=== PATIENT | male | born 1965 | race Caucasian/White ===

== ENCOUNTER 2022-04-03 12:54 | Inpatient (IN) ==
[2022-04-03 13:11] LABS: Basophils # 0.2 10*3/uL (0.0-0.2); Basophils % 0.5 % (0.0-0.8); Eosinophils # 0.1 10*3/uL (0.0-0.87); Eosinophils % 0.3 % (0.00-10.9); Hematocrit 32.4 VOL% (42.0-52.0); Immature Granulocytes % 9.5 %; Immature Granulocytes Absolute 3.31 #; Lymphocytes # 2.9 10*3/uL (1.4-4.0); Lymphocytes % 8.4 % (21.2-54.2); Mean Corpuscular HGB Conc 28.7 GM/DL (32-36); Mean Corpuscular Volume 100.6 FL (87-102); Mean Platelet Volume 10.7 FL (9.6-12.0); Monocytes # 3.3 10*3/uL (0.11-0.8); Monocytes % 9.4 % (1.7-12.7); NRBC # 0.25 10*3/uL; Neutrophils % 71.9 % (38.7-73.9); Platelet Count 204 T/CUMM (130-400); Red Blood Count 3.22 MC/CUMM (3.8-5.5); Red Cell Distribution Width 14.7 % (9.3-17.3); White Blood Count 34.8 T/CUMM (4-12)
[2022-04-03 13:20] LABS: Hemoglobin 9.3 GM/DL (14.0-18.0)
[2022-04-03 13:25] LABS: Albumin 1.4 G/DL (3.4-5.0); Calcium 9.4 MG/DL (8.5-10.1); Osmolality,Calculated 284.4 MOS/KG (273-304); Total Protein 4.5 G/DL (6.4-8.2)
[2022-04-03 13:28] LABS: Potassium 6.6 MMOL/L (3.5-5.1)
[2022-04-03] MEDS ORDERED: DEXTROSE 50% 25 GM/50 ML SYRINGE IV ONE ×2 (13:29→21:17)
[2022-04-03] MEDS ORDERED: DEXTROSE 50% 25 GM/50 ML VIAL IV STA (13:33)
[2022-04-03] MEDS ORDERED: DEXTROSE 50% 25 GM/50 ML SYRINGE IV STA (13:36)
[2022-04-03] MEDS ORDERED: SODIUM CHLORIDE 0.9% 1,000 ML IV STA ×3 (13:38→16:46)
[2022-04-03] MEDS ORDERED: VANCOMYCIN INJ 1,000 MG in SODIUM CHLORIDE 0.9% 250 ML IV STA (13:50)
[2022-04-03] MEDS ORDERED: PIPERACILLIN/TAZOBACTAM 3,375 MG in SODIUM CHLORIDE 0.9% 100 ML IV STA (13:51)
[2022-04-03] MEDS ORDERED: SODIUM BICARBONATE 50 MEQ/50 ML VIAL IV STA ×3 (13:51→18:07)
[2022-04-03] MEDS ORDERED: SODIUM ZIRCONIUM CYCLOSILICATE 10 GM PACK PO ONE (13:57)
[2022-04-03 14:40] LABS: Arterial Base Excess iSTAT -22 MMOL/L (-2.5-2.5); Arterial Bicarbonate iSTAT 6.3 MMOL/L (20-26); Arterial O2 Saturation iSTAT 98 % (95-100); Arterial PCO2 iSTAT 22 MM HG (35-48); Arterial PO2 iSTAT 134 MM HG (80-95); Arterial Total CO2 iSTAT 7 MMO/L (23-27)
[2022-04-03] MEDS ORDERED: SODIUM BICARBONATE 50 MEQ/50 ML VIAL IV ONE ×3 (15:11→21:52)
[2022-04-03] MEDS ORDERED: HYDROCORTISONE 100 MG VIAL IV STA (15:12)
[2022-04-03] MEDS: NOREPINEPHRINE 8 MG in SODIUM CHLORIDE 0.9% 242 ML IV PRN (15:40)
[2022-04-03] MEDS ORDERED: NOREPINEPHRINE 4 MG/4 ML VIAL IV ONE (15:44)
[2022-04-03] MEDS ORDERED: CALCIUM GLUCONATE RIDER 1,000 MG/50 ML PREMIX IV ONE ×3 (16:11→21:45)
[2022-04-03] MEDS ORDERED: SODIUM POLYSTYRENE SULFATE 15 GM/60 ML BOTTLE PO STA (16:11)
[2022-04-03 16:32] LABS: Band Neutrophils 6 % (0-10); Lymphocytes 6 % (20-55); Total Cells Counted 100
[2022-04-03 16:33] LABS: Platelet Estimate Normal
[2022-04-03] MEDS: SODIUM BICARB INJ 150 MEQ in DEXTROSE 5% 1,000 ML IV SCH (16:43)
[2022-04-03 17:18] LABS: ABG Base Excess -20.7 MMOL/L (-2.5-2.5); ABG HCO3 9.2 MMOL/L (20-26); ABG Oxygen Saturation 97.9 % (95-100); ABG PCO2 23.4 MM HG (35-48); ABG TCO2 7.3 MMOL/L (23-27)
[2022-04-03 17:25] LABS: ABG PH 7.116 (7.35-7.45)
[2022-04-03 18:05] LABS: Phosphorous 9.5 MG/DL (2.5-4.9); Uric Acid 4.7 MG/DL (3.5-7.2)
[2022-04-03] MEDS ORDERED: ALBUTEROL 2.5 MG/3 ML NEB RESP TX PRN (18:08)
[2022-04-03] MEDS ORDERED: ACETAMINOPHEN 325 MG TABLET PO PRN (18:09)
[2022-04-03] MEDS ORDERED: MORPHINE 2 MG/1 ML SYRINGE IV PRN (18:09)
[2022-04-03] MEDS ORDERED: ONDANSETRON 4 MG/2 ML VIAL IV PRN (18:09)
[2022-04-03] MEDS ORDERED: PANTOPRAZOLE 40 MG VIAL IV SCH (18:30)
[2022-04-03] MEDS ORDERED: SODIUM CHLORIDE 0.9% IV ONE (18:30)
[2022-04-03] MEDS ORDERED: TOCILIZUMAB IV ONE (18:30)
[2022-04-03 18:40] LABS: Calcium 8.8 MG/DL (8.5-10.1); Osmolality,Calculated 292.7 MOS/KG (273-304)
[2022-04-03] MEDS: CEFEPIME 1,000 MG in SODIUM CHLORIDE 0.9% 100 ML IV SCH (18:42)
[2022-04-03] MEDS ORDERED: DEXAMETHASONE 10 MG/1 ML VIAL IV ONE (18:47)
[2022-04-03 18:58] LABS: INR 2.1; PT Patient Result 22.1 SECS (10.1-12.1)
[2022-04-03] MEDS ORDERED: DEXAMETHASONE INJ 40 MG in SODIUM CHLORIDE 0.9% 50 ML IV ONE (20:30)
[2022-04-03] MEDS ORDERED: CALCIUM GLUCONATE 1,000 MG in SODIUM CHLORIDE 0.9% 100 ML IV ONE ×2 (20:40→21:30)
[2022-04-03] MEDS ORDERED: INSULIN REGULAR 100 UNIT/ML IV ONE ×2 (21:00→21:25)
[2022-04-03] MEDS ORDERED: INSULIN REGULAR 10 UNIT, CALCIUM GLUCONATE 1,000 MG in DEXTROSE 10% 250 ML IV ONE (21:00)
[2022-04-03] MEDS ORDERED: DEXTROSE 10% 250 ML BAG IV ONE ×2 (21:00→22:00)
[2022-04-03] MEDS ORDERED: SODIUM POLYSTYRENE SULFATE 15 GM/60 ML BOTTLE RECTAL ONE (21:27)
[2022-04-03 21:52] LABS: Arterial Base Excess iSTAT -15 MMOL/L (-2.5-2.5); Arterial Bicarbonate iSTAT 15.2 MMOL/L (20-26); Arterial O2 Saturation iSTAT 65 % (95-100); Arterial PCO2 iSTAT 62 MM HG (35-48); Arterial PO2 iSTAT 51 MM HG (80-95); Arterial Total CO2 iSTAT 17 MMO/L (23-27)
[2022-04-03] MEDS ORDERED: TOCILIZUMAB 400 MG in SODIUM CHLORIDE 0.9% 100 ML IV ONE (22:00)
[2022-04-03] MEDS ORDERED: LORazepam 2 MG/1 ML VIAL IV PRN (22:40)
[2022-04-03] MEDS ORDERED: HYDROCORTISONE 100 MG VIAL IV SCH (23:00)
[2022-04-03 23:52] LABS: Arterial Base Excess iSTAT -12 MMOL/L (-2.5-2.5); Arterial Bicarbonate iSTAT 15.2 MMOL/L (20-26); Arterial O2 Saturation iSTAT 96 % (95-100); Arterial PCO2 iSTAT 37 MM HG (35-48); Arterial PO2 iSTAT 98 MM HG (80-95); Arterial Total CO2 iSTAT 16 MMO/L (23-27); Arterial pH iSTAT 7.218 (7.35-7.45)
[2022-04-04 01:03] LABS: Calcium 8.8 MG/DL (8.5-10.1); Osmolality,Calculated 308.8 MOS/KG (273-304)
[2022-04-04] MEDS: NOREPINEPHRINE 8 MG in SODIUM CHLORIDE 0.9% 242 ML IV PRN ×2 (01:03→05:23)
[2022-04-04 01:19] LABS: Potassium 6.5 MMOL/L (3.5-5.1)
[2022-04-04] MEDS ORDERED: SODIUM BICARBONATE 50 MEQ/50 ML VIAL IV ONE (01:25)
[2022-04-04] MEDS ORDERED: INSULIN REGULAR 100 UNIT/ML IV ONE (01:26)
[2022-04-04] MEDS ORDERED: CALCIUM GLUCONATE RIDER 1,000 MG/50 ML PREMIX IV ONE (01:27)
[2022-04-04] MEDS ORDERED: INSULIN REGULAR 10 UNIT, CALCIUM GLUCONATE 1,000 MG in DEXTROSE 10% 250 ML IV ONE ×2 (02:00→06:30)
[2022-04-04] MEDS ORDERED: DEXTROSE 10% 250 ML BAG IV ONE (02:00)
[2022-04-04] MEDS: SODIUM BICARB INJ 150 MEQ in DEXTROSE 5% 1,000 ML IV SCH (03:00)
[2022-04-04] MEDS: CEFEPIME 1,000 MG in SODIUM CHLORIDE 0.9% 100 ML IV SCH (03:31)
[2022-04-04 04:27] LABS: Arterial Base Excess iSTAT -10 MMOL/L (-2.5-2.5); Arterial Bicarbonate iSTAT 16.2 MMOL/L (20-26); Arterial O2 Saturation iSTAT 99 % (95-100); Arterial PCO2 iSTAT 35 MM HG (35-48); Arterial PO2 iSTAT 160 MM HG (80-95); Arterial Total CO2 iSTAT 17 MMO/L (23-27); Arterial pH iSTAT 7.271 (7.35-7.45)
[2022-04-04 04:40] LABS: Basophils # 0.1 10*3/uL (0.0-0.2); Basophils % 0.2 % (0.0-0.8); Eosinophils # 0.1 10*3/uL (0.0-0.87); Eosinophils % 0.4 % (0.00-10.9); Hematocrit 25.6 VOL% (42.0-52.0); Immature Granulocytes % 5.5 %; Immature Granulocytes Absolute 1.78 #; Lymphocytes # 0.8 10*3/uL (1.4-4.0); Lymphocytes % 2.3 % (21.2-54.2); Mean Corpuscular HGB Conc 31.3 GM/DL (32-36); Mean Corpuscular Volume 93.8 FL (87-102); Mean Platelet Volume 11.4 FL (9.6-12.0); Monocytes # 1.7 10*3/uL (0.11-0.8); Monocytes % 5.2 % (1.7-12.7); NRBC # 0.76 10*3/uL; Neutrophils % 86.4 % (38.7-73.9); Platelet Count 89 T/CUMM (130-400); Red Blood Count 2.73 MC/CUMM (3.8-5.5); White Blood Count 32.3 T/CUMM (4-12)
[2022-04-04 05:10] LABS: Lymphocytes 1 % (20-55); Nucleated Red Blood Cells 3 /100 WBC (0-5); Platelet Estimate Decreased; Total Cells Counted 100
[2022-04-04] MEDS ORDERED: CALCIUM CHLORIDE 1,000 MG/10 ML SYRINGE IV ONE ×2 (05:36→06:33)
[2022-04-04] MEDS ORDERED: SODIUM BICARBONATE 50 MEQ/50 ML SYRINGE IV ONE ×2 (05:40→06:33)
[2022-04-04] MEDS ORDERED: EPINEPHrine 1 MG/ML VIAL ONE (05:58)
[2022-04-04] MEDS ORDERED: AMIODARONE 150 MG/3 ML VIAL IV ONE (06:33)
[2022-04-04] MEDS ORDERED: EPINEPHrine 1 MG/ML VIAL IV ONE (06:33)
[2022-04-04] MEDS ORDERED: MAGNESIUM SULFATE 1 GM/2 ML VIAL IV ONE (06:33)
[2022-04-04] MEDS ORDERED: NOREPINEPHRINE 4 MG/4 ML VIAL IV ONE (06:33)
[2022-04-04] MEDS ORDERED: EPINEPHrine 1 MG/10 ML SYRINGE IV ONE (06:33)
[2022-04-04 12:09] VITALS: BP 86/41
== END 2022-04-04 06:34 | disposition expired | DRG 682 ==
LOC: EDUNIT# → EDBD → N.ED 12:54 → N.EDINP 18:08 → N.CC 21:12
PROVIDERS: ADMIT Internal Medicine; ATTEND Internal Medicine